=== PATIENT | female | born 1965 | race Caucasian/White ===

== ENCOUNTER → 2017-02-09 | Outpatient (CLI) | payer OTHER | LOC: MAMO 10:41 | DX: Z12.31 Encounter for screening mammogram for malignant neoplasm of breast (principal) | CPT/HCPCS: G0202 ==

== ENCOUNTER → 2021-07-08 | Outpatient (CLI) | payer OTHER ==
[~2021-07-08] MED LIST: CLARITIN10 MG PO; ECOTRIN81 MG PO; MOBIC7.5 MG PO; ROBITUSSIN AC480 ML PO; SYMBICORT 80-41 INHA INH; TESSALON PERLE100 MG PO; TRICOR145 MG PO; VITAMIN D250000 UNIT PO
== END ==
LOC: HEART 5 10:15
DX: J45.20 Mild intermittent asthma, uncomplicated (principal); J30.9 Allergic rhinitis, unspecified; D64.9 Anemia, unspecified; F41.9 Anxiety disorder, unspecified
CPT/HCPCS: 71046; 94010; 95012

== ENCOUNTER 2022-05-24 17:12 | Emergency (ER) | payer OTHER ==
[~2022-05-24] VITALS: Ht 160 cm; Wt 114.8 kg
[2022-05-24 18:07] LABS: RED BLOOD COUNT 4.78 M/UL (4.00-5.10); WHITE BLOOD COUNT 7.2 K/UL (4.5-11.0)
[2022-05-24 18:25] LABS: BUN/CREATININE RATIO 11 (0-10)
[2022-05-24] MEDS ORDERED: ASPIRIN CHEWABL81 MG PO (22:55)
== END 2022-05-24 23:22 | disposition home or self-care (01) ==
LOC: ER1 17:12
PROVIDERS: Emergency Medicine
DX: U07.1 COVID-19 (principal); I10 Essential (primary) hypertension; E78.00 Pure hypercholesterolemia, unspecified; Z86.718 Personal history of other venous thrombosis and embolism; Z90.89 Acquired absence of other organs
CPT/HCPCS: 0240U; 71045; 80053; 81001; 85025; 85379; 87081; 87880; 99284; M0222; Q9967